=== PATIENT | male | born 2000 | race Caucasian/White ===

== ENCOUNTER 2024-07-20 19:52 | Emergency (ER) | payer SELFPAY ==
[~2024-07-20] VITALS: Ht 175.3 cm; Wt 53.3 kg
[2024-07-20 20:37] VITALS: O2SAT 99
[2024-07-21] MEDS: KETOROLAC 15MG/ML VIAL IM ONE (00:04)
[2024-07-21] MEDS: KETOROLAC 15MG/ML VIAL IM NR (00:04)
[2024-07-21 00:13] VITALS: BP 124/91; PULSE 73; RESP 16; TEMP 98.6; O2SAT 96
[2024-07-21] MEDS: ACETAMINOPHEN 325MG TABLET PO ONE (00:13)
== END 2024-07-21 00:14 | disposition home or self-care (01) ==
LOC: ER 19:52
DX: S06.0X0A Concussion without loss of consciousness, initial encounter (principal); S40.011A Contusion of right shoulder, initial encounter; S70.01XA Contusion of right hip, initial encounter; W18.39XA Other fall on same level, initial encounter; Y93.89 Activity, other specified; Y92.89 Other specified places as the place of occurrence of the external cause; Y99.8 Other external cause status
CPT/HCPCS: 73030; 73502; 99284